=== PATIENT | female | born 1990 | race Caucasian/White ===

== ENCOUNTER 2020-01-01 04:27 | Emergency (ER) | payer SELFPAY ==
[~2020-01-01] VITALS: Ht 157.5 cm; Wt 72.4 kg
[2020-01-01] MEDS ORDERED: ONDANSETRON 2MG/ML, 2ML ONE (04:44)
[2020-01-01] MEDS ORDERED: FAMOTIDINE 20 MG/2 ML ONE (04:48)
[2020-01-01] MEDS ORDERED: ONDANSETRON 2MG/ML, 2ML IVPush ONE (05:00)
[2020-01-01] MEDS ORDERED: SODIUM CHLORIDE 0.9% 1,000ML IVBOLUS ONE ×2 (05:00→06:30)
[2020-01-01] MEDS ORDERED: FAMOTIDINE 20 MG/2 ML IVPush ONE (05:00)
[2020-01-01 05:03] LABS: BASOPHILS % (AUTO) 0 % (0-1); EOSINOPHILS # (AUTO) 0.04 x10^3/uL (0-0.4); EOSINOPHILS % (AUTO) 0 % (1-7); LYMPHOCYTES # (AUTO) 2.09 x10^3/uL (1-3.4); LYMPHOCYTES % (AUTO) 15 % (22-44); MD NO; MEAN CORPUSCULAR HGB CONC 33.5 g/dL (32.4-35.8); MEAN CORPUSCULAR VOLUME 92.4 fL (80-100); MEAN PLATELET VOLUME 8.3 fL (7.4-10.4); MONOCYTES # (AUTO) 0.33 x10^3/uL (0.2-0.8); MONOCYTES % (AUTO) 2 % (2-9); NEUTROPHILS # (AUTO) 11.72 x10^3/uL (1.8-6.8); NEUTROPHILS % (AUTO) 83 % (42-75); PLATELET COUNT 373 x10^3/uL (130-400); RED CELL DISTRIBUTION WIDTH 13.6 % (9.6-15.2)
[2020-01-01 05:13] LABS: ALANINE AMINOTRANSFERASE 36 U/L (12-78); ALBUMIN 3.9 g/dL (3.4-5.0); ANION GAP 11 mmol/L (5-15); CALCIUM 9.3 mg/dL (8.5-10.1); CHLORIDE 106 mmol/L (98-107); CREATININE 0.75 mg/dL (0.55-1.02)
[2020-01-01] MEDS ORDERED: PROMETHAZINE 25 MG/ML, 1ML ONE (05:27)
[2020-01-01 05:30] LABS: ALKALINE PHOSPHATASE 88 U/L (45-117); BILIRUBIN,TOTAL 0.7 mg/dL (0.2-1.0); TOTAL PROTEIN 8.7 g/dL (6.4-8.2)
[2020-01-01] MEDS ORDERED: PROMETHAZINE 25 MG/ML, 1ML IM ONE (05:30)
[2020-01-01 05:31] LABS: MICROSCOPIC INDICATED
[2020-01-01 06:25] VITALS: BP 110/63
[2020-01-01] MEDS ORDERED: METOCLOPRAMIDE 5 MG/ML, 2ML ONE (06:42)
--- NOTE | 2020-01-01 06:57 | NUR ---
report to NOMI Harp
[2020-01-01] MEDS ORDERED: METOCLOPRAMIDE 5 MG/ML, 2ML IVPush ONE (07:00)
--- NOTE | 2020-01-01 07:51 | NUR ---
DISCHARGE INSTRUCTIONS REVIEWED
== END 2020-01-01 08:15 | disposition home or self-care (01) ==
LOC: ED 05:27
DX: O23.41 Unspecified infection of urinary tract in pregnancy, first trimester (principal); O21.8 Other vomiting complicating pregnancy; O20.8 Other hemorrhage in early pregnancy; Z3A.01 Less than 8 weeks gestation of pregnancy
CPT/HCPCS: 36415; 76801; 80053; 81001; 84702; 85025; 87077; 87086; 96361; 96372; 96374; 96375; 99285; J2405; J2550; J2765; J3490; J7030; 87186; 99284

== ENCOUNTER 2020-01-02 07:33 | Inpatient (IN) | payer OTHER ==
[~2020-01-02] VITALS: Ht 157.5 cm; Wt 68.8 kg
--- NOTE | 2020-01-02 07:50 | NUR ---
first contact with pt. pt is 8 wks . pt c/o N/V, "THROWING UP BLOOD" LMP 11/03/19. a0. pt's aox4. resps even and unlabored. denies any other sx. bp/spo2 monitors in place. call light within reach. pa at bedside to evaluate at this time.
[2020-01-02] MEDS ORDERED: CEFTRIAXONE PMX 1GM/50ML 50 ML ONE (07:54)
[2020-01-02] MEDS ORDERED: MAALOX/HYOSCYAMINE/LIDOCAINE 45 ML BTL ONE (07:54)
[2020-01-02] MEDS ORDERED: FAMOTIDINE 20 MG/2 ML ONE (07:54)
[2020-01-02] MEDS ORDERED: METOCLOPRAMIDE 5 MG/ML, 2ML ONE (07:54)
[2020-01-02] MEDS ORDERED: CEFTRIAXONE PMX 1GM/50ML 50 ML IV ONE (08:00)
[2020-01-02] MEDS ORDERED: MAALOX/HYOSCYAMINE/LIDOCAINE 45 ML BTL PO ONE (08:00)
[2020-01-02] MEDS ORDERED: METOCLOPRAMIDE 5 MG/ML, 2ML IVPush ONE (08:00)
[2020-01-02] MEDS ORDERED: SODIUM CHLORIDE 0.9% 1,000ML IVBOLUS ONE (08:00)
[2020-01-02] MEDS ORDERED: FAMOTIDINE 20 MG/2 ML IV ONE (08:00)
--- NOTE | 2020-01-02 08:02 | NUR ---
ULTRASOUND DELAY-IV/MEDS/LABS
[2020-01-02 08:07] LABS: BASOPHILS % (AUTO) 0 % (0-1); EOSINOPHILS # (AUTO) 0.01 x10^3/uL (0-0.4); EOSINOPHILS % (AUTO) 0 % (1-7); LYMPHOCYTES % (AUTO) 12 % (22-44); MD NO; MEAN CORPUSCULAR HEMOGLOBIN 31.1 pg (27.0-34.8); MEAN CORPUSCULAR HGB CONC 33.8 g/dL (32.4-35.8); MEAN CORPUSCULAR VOLUME 92.1 fL (80-100); MEAN PLATELET VOLUME 7.8 fL (7.4-10.4); MONOCYTES # (AUTO) 0.26 x10^3/uL (0.2-0.8); MONOCYTES % (AUTO) 2 % (2-9); NEUTROPHILS # (AUTO) 10.38 x10^3/uL (1.8-6.8); NEUTROPHILS % (AUTO) 86 % (42-75); PLATELET COUNT 331 x10^3/uL (130-400); RED BLOOD COUNT 4.41 x10^6/uL (3.82-5.3); RED CELL DISTRIBUTION WIDTH 13.7 % (9.6-15.2)
--- NOTE | 2020-01-02 08:14 | NUR ---
piv est on r ac with no complications. pt medicated per emar. ns and abx infusing at this time. no bc needed per pa. pt tolerated well.
--- NOTE | 2020-01-02 08:14 | NUR ---
us at bedside at this time.
[2020-01-02 08:22] LABS: ALBUMIN 3.6 g/dL (3.4-5.0); ANION GAP 9 mmol/L (5-15); CALCIUM 8.5 mg/dL (8.5-10.1); CHLORIDE 108 mmol/L (98-107)
[2020-01-02] MEDS ORDERED: PROMETHAZINE 25 MG/ML, 1ML IM ONE (08:30)
[2020-01-02 08:42] LABS: ALANINE AMINOTRANSFERASE 31 U/L (12-78); ALKALINE PHOSPHATASE 79 U/L (45-117); BILIRUBIN,TOTAL 0.6 mg/dL (0.2-1.0); TOTAL PROTEIN 7.8 g/dL (6.4-8.2)
--- NOTE | 2020-01-02 09:02 | NUR ---
pt stated"i feel better. i don't need med now." pa notified.
[2020-01-02] MEDS ORDERED: PROMETHAZINE 25 MG/ML, 1ML ONE (09:13)
--- NOTE | 2020-01-02 09:18 | NUR ---
PT MEDICATED PER EMAR. PT TOLERATED WELL.
--- NOTE | 2020-01-02 09:37 | NUR ---
TASK RN NOTE: PT STILL DRY HEAVING. GIVEN ALCOHOL WIPE TO SMELL FOR NAUSEA RELIEF. HOB TO LEVEL OF COMFORT. PT SITTING UP, ABLE TO STOP HEAVING TO ANSWER QUESTIONS FOR REGISTRATION. SIDE RAILS UP, CALL LIGHT IN REACH.
[2020-01-02] MEDS ORDERED: DIPHENHYDRAMINE 50 MG/ML, 1ML ONE (09:43)
[2020-01-02] MEDS ORDERED: ONDANSETRON 2MG/ML, 2ML ONE (09:43)
--- NOTE | 2020-01-02 09:50 | NUR ---
PT MEDICATED PER EMAR. PT TOLERATED WELL. PT'S AOX4. RESPS EVEN AND UNLABORED.
[2020-01-02] MEDS ORDERED: ONDANSETRON 2MG/ML, 2ML IVPush ONE (10:00)
[2020-01-02] MEDS ORDERED: DIPHENHYDRAMINE 50 MG/ML, 1ML IVPush ONE (10:00)
--- NOTE | 2020-01-02 10:22 | NUR ---
REPORT GIVEN TO LIZBET MOSHER. ALL QUESTIONS ANSWERED.
[2020-01-02 10:46] VITALS: BP 113/78
[2020-01-02] MEDS ORDERED: hydrALAzine 20 MG/ML, 1ML IVPush PRN (12:00)
[2020-01-02] MEDS ORDERED: ONDANSETRON ODT 4 MG PO PRN (12:00)
[2020-01-02] MEDS ORDERED: POLYETHYLENE GLYCOL 17 GM PACKET PO PRN (12:00)
[2020-01-02] MEDS ORDERED: BISACODYL 10 MG SUPP PR PRN (12:00)
[2020-01-02] MEDS ORDERED: ONDANSETRON 2MG/ML, 2ML IVPush PRN (12:00)
[2020-01-02] MEDS: D5%-0.9% NACL+KCL 20MEQ 1,000 ML IV SCH ×2 (12:37→23:58)
[2020-01-02] MEDS: PROMETHAZINE 25 MG SUPP PR PRN ×2 (13:00→20:15)
[2020-01-02 14:10] VITALS: BP 109/73
[2020-01-02] MEDS: METOCLOPRAMIDE 5 MG/ML, 2ML IVPush PRN (16:15)
[2020-01-02] MEDS: PYRIDOXINE 25MG TABLET PO SCH (20:15)
[2020-01-02] MEDS: FAMOTIDINE 20 MG/2 ML IVPush SCH (20:15)
[2020-01-02 20:25] VITALS: BP 102/65
[2020-01-02] MEDS ORDERED: DOXYLAMINE 25MG TABLET PO SCH (21:00)
[2020-01-03 01:19] VITALS: BP 114/73
[2020-01-03] MEDS: PROMETHAZINE 25 MG SUPP PR PRN ×4 (02:41→23:12)
[2020-01-03] MEDS: METOCLOPRAMIDE 5 MG/ML, 2ML IVPush PRN ×2 (03:56→14:59)
[2020-01-03 05:48] LABS: BASOPHILS # (AUTO) 0.01 x10^3/uL (0-0.1); BASOPHILS % (AUTO) 0 % (0-1); EOSINOPHILS % (AUTO) 0 % (1-7); LYMPHOCYTES # (AUTO) 1.93 x10^3/uL (1-3.4); LYMPHOCYTES % (AUTO) 14 % (22-44); MD NO; MEAN CORPUSCULAR HEMOGLOBIN 31.3 pg (27.0-34.8); MEAN CORPUSCULAR HGB CONC 33.8 g/dL (32.4-35.8); MEAN CORPUSCULAR VOLUME 92.6 fL (80-100); MEAN PLATELET VOLUME 8.3 fL (7.4-10.4); MONOCYTES # (AUTO) 0.68 x10^3/uL (0.2-0.8); MONOCYTES % (AUTO) 5 % (2-9); NEUTROPHILS # (AUTO) 11.19 x10^3/uL (1.8-6.8); NEUTROPHILS % (AUTO) 81 % (42-75); PLATELET COUNT 270 x10^3/uL (130-400); RED BLOOD COUNT 3.78 x10^6/uL (3.82-5.3); RED CELL DISTRIBUTION WIDTH 13.6 % (9.6-15.2)
[2020-01-03 06:01] LABS: ALBUMIN 2.9 g/dL (3.4-5.0); ANION GAP 7 mmol/L (5-15); CALCIUM 7.6 mg/dL (8.5-10.1); CHLORIDE 112 mmol/L (98-107)
[2020-01-03 06:06] LABS: ALANINE AMINOTRANSFERASE 31 U/L (12-78); ALKALINE PHOSPHATASE 66 U/L (45-117); BILIRUBIN,TOTAL 0.3 mg/dL (0.2-1.0); CREATININE 0.47 mg/dL (0.55-1.02); TOTAL PROTEIN 6.5 g/dL (6.4-8.2)
[2020-01-03 06:24] VITALS: BP 125/83
[2020-01-03] MEDS ORDERED: CEFTRIAXONE PMX 1GM/50ML 50 ML IV SCH (08:00)
[2020-01-03] MEDS: DOXYLAMINE 25MG TABLET PO SCH ×3 (08:24→20:24)
[2020-01-03] MEDS: FAMOTIDINE 20 MG/2 ML IVPush SCH (08:24)
[2020-01-03] MEDS ORDERED: SENNA/DOCUSATE TABLET PO SCH (09:00)
[2020-01-03] MEDS: D5%-0.9% NACL+KCL 20MEQ 1,000 ML IV SCH ×2 (10:00→16:42)
[2020-01-03] MEDS ORDERED: ACETAMINOPHEN 325 MG TABLET PO PRN (10:30)
[2020-01-03 12:18] VITALS: BP 113/76
[2020-01-03 19:41] VITALS: BP 127/84
[2020-01-03] MEDS: CALCIUM CARBONATE 500 MG TAB.CHEW PO PRN ×2 (20:24→23:12)
[2020-01-03] MEDS: PYRIDOXINE 25MG TABLET PO SCH (20:24)
[2020-01-03] MEDS ORDERED: FAMOTIDINE 20 MG/2 ML IV SCH (21:00)
[2020-01-04 00:08] VITALS: BP 93/54
[2020-01-04] MEDS: CALCIUM CARBONATE 500 MG TAB.CHEW PO PRN ×2 (01:58→08:15)
[2020-01-04] MEDS: D5%-0.9% NACL+KCL 20MEQ 1,000 ML IV SCH (04:25)
[2020-01-04 05:44] LABS: ALANINE AMINOTRANSFERASE 65 U/L (12-78); ALBUMIN 2.9 g/dL (3.4-5.0); ANION GAP 9 mmol/L (5-15); CALCIUM 7.8 mg/dL (8.5-10.1); CHLORIDE 111 mmol/L (98-107); CREATININE 0.45 mg/dL (0.55-1.02)
[2020-01-04 05:47] LABS: ALKALINE PHOSPHATASE 75 U/L (45-117); TOTAL PROTEIN 6.7 g/dL (6.4-8.2)
[2020-01-04 06:01] LABS: BASOPHILS # (AUTO) 0.04 x10^3/uL (0-0.1); BASOPHILS % (AUTO) 0 % (0-1); EOSINOPHILS % (AUTO) 0 % (1-7); LYMPHOCYTES # (AUTO) 2.04 x10^3/uL (1-3.4); LYMPHOCYTES % (AUTO) 16 % (22-44); MD NO; MEAN CORPUSCULAR HEMOGLOBIN 30.9 pg (27.0-34.8); MEAN CORPUSCULAR HGB CONC 33.4 g/dL (32.4-35.8); MEAN CORPUSCULAR VOLUME 92.6 fL (80-100); MEAN PLATELET VOLUME 8.4 fL (7.4-10.4); MONOCYTES # (AUTO) 0.59 x10^3/uL (0.2-0.8); MONOCYTES % (AUTO) 5 % (2-9); NEUTROPHILS # (AUTO) 9.99 x10^3/uL (1.8-6.8); NEUTROPHILS % (AUTO) 79 % (42-75); PLATELET COUNT 292 x10^3/uL (130-400); RED BLOOD COUNT 3.85 x10^6/uL (3.82-5.3); RED CELL DISTRIBUTION WIDTH 13.8 % (9.6-15.2)
[2020-01-04 06:32] VITALS: BP 2/67
[2020-01-04] MEDS ORDERED: CEPH-368 PO (07:57)
[2020-01-04] MEDS: DOXYLAMINE 25MG TABLET PO SCH (08:11)
== END 2020-01-04 10:00 | disposition home or self-care (01) | DRG 832 ==
LOC: ED 07:51 → EDIP 09:52 → 3N 10:27 → DCLOUNGE 01-04 09:55
PROVIDERS: ADMIT Internal Medicine; ATTEND Hospitalist
DX: O21.1 Hyperemesis gravidarum with metabolic disturbance (principal); O23.41 Unspecified infection of urinary tract in pregnancy, first trimester; O99.321 Drug use complicating pregnancy, first trimester; F12.90 Cannabis use, unspecified, uncomplicated; B96.20 Unspecified Escherichia coli [E. coli] as the cause of diseases classified elsewhere; O99.611 Diseases of the digestive system complicating pregnancy, first trimester; K59.00 Constipation, unspecified; O46.8X1 Other antepartum hemorrhage, first trimester; Z3A.08 8 weeks gestation of pregnancy
CPT/HCPCS: 36415; 96365; 96366; 96372; 96375; 99285; J3490; 76700; 80053; 83690; 83735; 84100; 84702; 85025; G0378; J0696; J2405; J2550; J1200; J2765; J3480; J7030

== ENCOUNTER 2020-01-07 08:23 | Inpatient (IN) | payer MEDICAID, OTHER ==
[~2020-01-07] VITALS: Ht 154.9 cm; Wt 73.9 kg
[~2020-01-07 08:23] MED LIST: CEPH-368 PO
--- NOTE | 2020-01-07 09:12 | NUR ---
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 LILIAN
[2020-01-07] MEDS ORDERED: ONDANSETRON 2MG/ML, 2ML ONE (09:30)
[2020-01-07] MEDS ORDERED: SODIUM CHLORIDE FLUSH 10ML SYR IVF ONE (09:30)
[2020-01-07] MEDS ORDERED: ONDANSETRON 2MG/ML, 2ML IVPush ONE (09:30)
[2020-01-07] MEDS ORDERED: MORPHINE SULFATE 4 MG/ML, 1ML ONE (09:30)
--- NOTE | 2020-01-07 09:34 | NUR ---
Pt transported on gurney to imaging at this time and is away from ED room at this time.
[2020-01-07 09:35] LABS: MICROSCOPIC INDICATED
--- NOTE | 2020-01-07 10:13 | NUR ---
Pt back to room from US.
[2020-01-07] MEDS: MORPHINE SULFATE 4 MG/ML, 1ML IVPush PRN ×2 (10:29→18:44)
[2020-01-07] MEDS ORDERED: zofran (10:35)
[2020-01-07 10:50] LABS: BASOPHILS # (AUTO) 0.01 x10^3/uL (0-0.1); BASOPHILS % (AUTO) 0 % (0-1); EOSINOPHILS # (AUTO) 0.07 x10^3/uL (0-0.4); EOSINOPHILS % (AUTO) 1 % (1-7); LYMPHOCYTES # (AUTO) 1.67 x10^3/uL (1-3.4); LYMPHOCYTES % (AUTO) 13 % (22-44); MD NO; MEAN CORPUSCULAR HGB CONC 33.6 g/dL (32.4-35.8); MEAN CORPUSCULAR VOLUME 92.3 fL (80-100); MEAN PLATELET VOLUME 8.4 fL (7.4-10.4); MONOCYTES # (AUTO) 0.23 x10^3/uL (0.2-0.8); MONOCYTES % (AUTO) 2 % (2-9); NEUTROPHILS # (AUTO) 10.51 x10^3/uL (1.8-6.8); NEUTROPHILS % (AUTO) 84 % (42-75); PLATELET COUNT 339 x10^3/uL (130-400); RED BLOOD COUNT 4.34 x10^6/uL (3.82-5.3); RED CELL DISTRIBUTION WIDTH 13.6 % (9.6-15.2)
[2020-01-07 11:02] LABS: ALANINE AMINOTRANSFERASE 110 U/L (12-78); ALBUMIN 3.1 g/dL (3.4-5.0); ANION GAP 11 mmol/L (5-15); CALCIUM 7.8 mg/dL (8.5-10.1); CHLORIDE 106 mmol/L (98-107); CREATININE 0.42 mg/dL (0.55-1.02)
[2020-01-07 11:19] LABS: ALKALINE PHOSPHATASE 124 U/L (45-117); BILIRUBIN,TOTAL 0.7 mg/dL (0.2-1.0); TOTAL PROTEIN 7.2 g/dL (6.4-8.2)
--- NOTE | 2020-01-07 11:29 | NUR ---
WICHO PA IN FOR RECHECK.
[2020-01-07] MEDS ORDERED: SODIUM CHLORIDE 0.9% 1,000ML IVBOLUS ONE (11:30)
[2020-01-07] MEDS ORDERED: CEFOTETAN PMX 1GM/50ML 50 ML ONE (11:42)
--- NOTE | 2020-01-07 11:52 | NUR ---
FLUID BOLUS AND ABX INFUSING. PT UNDERSTANDS PLAN FOR ADMISSION.
[2020-01-07] MEDS ORDERED: CEFOTETAN PMX 1GM/50ML 50 ML IV ONE (12:00)
[2020-01-07] MEDS ORDERED: morphine SULFATE 10 MG/ML, 1ML IVPush PRN (14:30)
[2020-01-07] MEDS ORDERED: hydrALAzine 20 MG/ML, 1ML IVPush PRN (14:30)
[2020-01-07] MEDS ORDERED: ACETAMINOPHEN 325 MG TABLET PO PRN (14:30)
[2020-01-07] MEDS: D5%-0.45NACL+KCL 20MEQ 1,000 ML IV SCH (15:44)
[2020-01-07] MEDS: AMPICILLIN/SULBACTAM 3 GM in SODIUM CHLORIDE 0.9% 100 ML IV SCH ×2 (17:00→23:01)
[2020-01-07 19:05] VITALS: BP 117/76
[2020-01-07] MEDS: OXYcodone IR 5MG TABLET PO PRN (19:49)
[2020-01-08] MEDS ORDERED: Pepcid (00:16)
[2020-01-08 00:32] VITALS: BP 105/67
[2020-01-08] MEDS: ONDANSETRON 2MG/ML, 2ML IVPush PRN ×2 (01:27→09:11)
[2020-01-08] MEDS: OXYcodone IR 5MG TABLET PO PRN ×5 (01:54→23:12)
[2020-01-08] MEDS: D5%-0.45NACL+KCL 20MEQ 1,000 ML IV SCH ×2 (03:15→14:13)
[2020-01-08] MEDS: AMPICILLIN/SULBACTAM 3 GM in SODIUM CHLORIDE 0.9% 100 ML IV SCH ×4 (05:16→23:08)
[2020-01-08 05:53] LABS: BASOPHILS # (AUTO) 0.07 x10^3/uL (0-0.1); BASOPHILS % (AUTO) 1 % (0-1); EOSINOPHILS # (AUTO) 0.07 x10^3/uL (0-0.4); EOSINOPHILS % (AUTO) 1 % (1-7); LYMPHOCYTES # (AUTO) 2.06 x10^3/uL (1-3.4); LYMPHOCYTES % (AUTO) 24 % (22-44); MD NO; MEAN CORPUSCULAR HEMOGLOBIN 30.9 pg (27.0-34.8); MEAN CORPUSCULAR HGB CONC 33.6 g/dL (32.4-35.8); MEAN CORPUSCULAR VOLUME 92.1 fL (80-100); MEAN PLATELET VOLUME 8.1 fL (7.4-10.4); MONOCYTES # (AUTO) 0.28 x10^3/uL (0.2-0.8); MONOCYTES % (AUTO) 3 % (2-9); NEUTROPHILS # (AUTO) 6.12 x10^3/uL (1.8-6.8); NEUTROPHILS % (AUTO) 71 % (42-75); PLATELET COUNT 284 x10^3/uL (130-400); RED CELL DISTRIBUTION WIDTH 13.7 % (9.6-15.2)
[2020-01-08 05:59] LABS: CALCIUM 7.7 mg/dL (8.5-10.1); CHLORIDE 107 mmol/L (98-107)
[2020-01-08 06:02] LABS: ANION GAP 6 mmol/L (5-15); CREATININE 0.49 mg/dL (0.55-1.02)
[2020-01-08 08:00] VITALS: BP 117/75
[2020-01-08 08:23] LABS: ALBUMIN 2.6 g/dL (3.4-5.0); BILIRUBIN, DIRECT 0.2 mg/dL (0.1-0.2)
[2020-01-08 08:27] LABS: BILIRUBIN,INDIRECT 0.2 mg/dL (0.0-2.0); BILIRUBIN,TOTAL 0.4 mg/dL (0.2-1.0); TOTAL PROTEIN 6.3 g/dL (6.4-8.2)
[2020-01-08] MEDS ORDERED: POTASSIUM CHLORIDE 20 MEQ TAB.ER.PRT PO ONE (12:30)
[2020-01-08 14:42] VITALS: BP 117/79
[2020-01-08] MEDS: PANTOPRAZOLE 40 MG IV IVPush SCH (17:01)
[2020-01-08] MEDS: ALUMINUM/MAG/SIMETHICONE 30 ML UDC PO SCH ×2 (17:01→20:54)
[2020-01-08] MEDS: SUCRALFATE 1 GM/10 ML UDC PO SCH ×2 (17:01→20:54)
[2020-01-08 19:36] VITALS: BP 104/63
[2020-01-09 00:25] VITALS: BP 103/63
[2020-01-09] MEDS: D5%-0.45NACL+KCL 20MEQ 1,000 ML IV SCH (01:32)
[2020-01-09] MEDS: ONDANSETRON 2MG/ML, 2ML IVPush PRN ×3 (04:09→20:26)
[2020-01-09] MEDS: OXYcodone IR 5MG TABLET PO PRN ×2 (05:14→20:26)
[2020-01-09] MEDS: PANTOPRAZOLE 40 MG IV IVPush SCH ×2 (05:14→17:00)
[2020-01-09] MEDS: AMPICILLIN/SULBACTAM 3 GM in SODIUM CHLORIDE 0.9% 100 ML IV SCH ×4 (05:14→23:04)
[2020-01-09] MEDS: ALUMINUM/MAG/SIMETHICONE 30 ML UDC PO SCH ×3 (07:31→20:26)
[2020-01-09] MEDS: SUCRALFATE 1 GM/10 ML UDC PO SCH ×4 (07:31→20:26)
[2020-01-09 08:19] VITALS: BP 110/74
[2020-01-09 09:01] LABS: CALCIUM 7.9 mg/dL (8.5-10.1); CHLORIDE 108 mmol/L (98-107)
[2020-01-09 09:05] LABS: ALANINE AMINOTRANSFERASE 76 U/L (12-78); ALBUMIN 2.8 g/dL (3.4-5.0); ALKALINE PHOSPHATASE 121 U/L (45-117); ANION GAP 6 mmol/L (5-15); BILIRUBIN,TOTAL 0.5 mg/dL (0.2-1.0); CREATININE 0.49 mg/dL (0.55-1.02); TOTAL PROTEIN 6.5 g/dL (6.4-8.2)
[2020-01-09] MEDS: FOLIC ACID 1 MG TABLET PO SCH (09:52)
[2020-01-09 13:10] VITALS: BP 90/54
[2020-01-09] MEDS: ACETAMINOPHEN 325 MG TABLET PO PRN (13:42)
[2020-01-09 20:00] VITALS: BP 105/66
[2020-01-10 00:11] VITALS: BP 96/65
[2020-01-10 05:31] LABS: ALBUMIN 2.8 g/dL (3.4-5.0); ANION GAP 6 mmol/L (5-15); CALCIUM 7.8 mg/dL (8.5-10.1); CHLORIDE 108 mmol/L (98-107)
[2020-01-10 05:35] LABS: ALANINE AMINOTRANSFERASE 64 U/L (12-78); ALKALINE PHOSPHATASE 103 U/L (45-117); BILIRUBIN,TOTAL 0.5 mg/dL (0.2-1.0); CREATININE 0.52 mg/dL (0.55-1.02); TOTAL PROTEIN 6.4 g/dL (6.4-8.2)
[2020-01-10] MEDS: PANTOPRAZOLE 40 MG IV IVPush SCH ×2 (05:35→17:34)
[2020-01-10] MEDS: AMPICILLIN/SULBACTAM 3 GM in SODIUM CHLORIDE 0.9% 100 ML IV SCH ×4 (05:35→23:09)
[2020-01-10] MEDS: ONDANSETRON 2MG/ML, 2ML IVPush PRN ×2 (05:42→11:32)
[2020-01-10] MEDS: SUCRALFATE 1 GM/10 ML UDC PO SCH ×4 (07:38→21:58)
[2020-01-10] MEDS: ALUMINUM/MAG/SIMETHICONE 30 ML UDC PO SCH ×3 (07:38→21:58)
[2020-01-10] MEDS: FOLIC ACID 1 MG TABLET PO SCH (07:38)
[2020-01-10 08:07] VITALS: BP 101/67
[2020-01-10] MEDS: ACETAMINOPHEN 325 MG TABLET PO PRN (11:33)
[2020-01-10 13:53] LABS: CLOSTRIDIUM DIFFICILE ANTIGEN POSITIVE; CLOSTRIDIUM DIFFICILE TOXIN NEGATIVE (Negative)
[2020-01-10 14:00] VITALS: BP 110/73
[2020-01-10] MEDS: DIPHENHYDRAMINE 50 MG/ML, 1ML IVPush PRN ×2 (14:22→21:54)
[2020-01-10] MEDS: VANCOMYCIN 50 MG/ML ORAL SUSP PO SCH ×2 (18:17→23:21)
[2020-01-10] MEDS: PYRIDOXINE 25MG TABLET PO SCH (21:59)
[2020-01-10] MEDS: DOXYLAMINE 25MG TABLET PO SCH (21:59)
[2020-01-10 22:00] VITALS: BP 98/65
[2020-01-10] MEDS: OXYcodone IR 5MG TABLET PO PRN (22:15)
[2020-01-11] MEDS: ONDANSETRON 2MG/ML, 2ML IVPush PRN (02:09)
[2020-01-11 02:12] VITALS: BP 111/72
[2020-01-11] MEDS: PANTOPRAZOLE 40 MG IV IVPush SCH ×2 (05:18→16:41)
[2020-01-11] MEDS: DIPHENHYDRAMINE 50 MG/ML, 1ML IVPush PRN ×2 (05:23→23:37)
[2020-01-11] MEDS: AMPICILLIN/SULBACTAM 3 GM in SODIUM CHLORIDE 0.9% 100 ML IV SCH ×3 (05:24→17:49)
[2020-01-11] MEDS: VANCOMYCIN 50 MG/ML ORAL SUSP PO SCH ×4 (05:29→23:37)
[2020-01-11] MEDS: OXYcodone IR 5MG TABLET PO PRN ×3 (05:32→20:30)
[2020-01-11 06:36] LABS: BASOPHILS # (AUTO) 0.03 x10^3/uL (0-0.1); BASOPHILS % (AUTO) 0 % (0-1); EOSINOPHILS # (AUTO) 0.12 x10^3/uL (0-0.4); EOSINOPHILS % (AUTO) 1 % (1-7); LYMPHOCYTES # (AUTO) 2.33 x10^3/uL (1-3.4); LYMPHOCYTES % (AUTO) 23 % (22-44); MD NO; MEAN CORPUSCULAR HEMOGLOBIN 30.9 pg (27.0-34.8); MEAN CORPUSCULAR HGB CONC 33.1 g/dL (32.4-35.8); MEAN CORPUSCULAR VOLUME 93.5 fL (80-100); MEAN PLATELET VOLUME 8.4 fL (7.4-10.4); MONOCYTES # (AUTO) 0.34 x10^3/uL (0.2-0.8); MONOCYTES % (AUTO) 3 % (2-9); NEUTROPHILS # (AUTO) 7.31 x10^3/uL (1.8-6.8); NEUTROPHILS % (AUTO) 72 % (42-75); PLATELET COUNT 328 x10^3/uL (130-400); RED BLOOD COUNT 4.27 x10^6/uL (3.82-5.3); RED CELL DISTRIBUTION WIDTH 13.6 % (9.6-15.2)
[2020-01-11 06:52] LABS: ANION GAP 6 mmol/L (5-15); CALCIUM 8.5 mg/dL (8.5-10.1); CHLORIDE 106 mmol/L (98-107)
[2020-01-11 06:53] LABS: CREATININE 0.52 mg/dL (0.55-1.02)
[2020-01-11 07:47] VITALS: BP 107/68
[2020-01-11] MEDS: SUCRALFATE 1 GM/10 ML UDC PO SCH ×4 (08:27→20:28)
[2020-01-11] MEDS: FOLIC ACID 1 MG TABLET PO SCH (08:27)
[2020-01-11] MEDS: ALUMINUM/MAG/SIMETHICONE 30 ML UDC PO SCH ×3 (08:27→20:29)
[2020-01-11 13:48] VITALS: BP 109/72
[2020-01-11 20:26] VITALS: BP 116/64
[2020-01-11] MEDS: PYRIDOXINE 25MG TABLET PO SCH (20:29)
[2020-01-11] MEDS: LACTOBACILLUS CHEW TABLET PO SCH (20:29)
[2020-01-11] MEDS: DOXYLAMINE 25MG TABLET PO SCH (20:30)
[2020-01-12 01:37] VITALS: BP 100/65
[2020-01-12] MEDS: PANTOPRAZOLE 40 MG IV IVPush SCH ×2 (05:38→16:35)
[2020-01-12] MEDS: VANCOMYCIN 50 MG/ML ORAL SUSP PO SCH ×4 (05:38→23:47)
[2020-01-12] MEDS: DIPHENHYDRAMINE 50 MG/ML, 1ML IVPush PRN ×2 (05:47→23:49)
[2020-01-12 05:52] LABS: BASOPHILS # (AUTO) 0.08 x10^3/uL (0-0.1); BASOPHILS % (AUTO) 1 % (0-1); EOSINOPHILS # (AUTO) 0.08 x10^3/uL (0-0.4); EOSINOPHILS % (AUTO) 1 % (1-7); LYMPHOCYTES # (AUTO) 2.11 x10^3/uL (1-3.4); LYMPHOCYTES % (AUTO) 21 % (22-44); MD NO; MEAN CORPUSCULAR HEMOGLOBIN 30.8 pg (27.0-34.8); MEAN CORPUSCULAR VOLUME 93.4 fL (80-100); MEAN PLATELET VOLUME 8.1 fL (7.4-10.4); MONOCYTES # (AUTO) 0.34 x10^3/uL (0.2-0.8); MONOCYTES % (AUTO) 3 % (2-9); NEUTROPHILS # (AUTO) 7.48 x10^3/uL (1.8-6.8); NEUTROPHILS % (AUTO) 74 % (42-75); PLATELET COUNT 319 x10^3/uL (130-400); RED BLOOD COUNT 4.47 x10^6/uL (3.82-5.3)
[2020-01-12] MEDS: SUCRALFATE 1 GM/10 ML UDC PO SCH ×4 (06:06→20:02)
[2020-01-12 06:08] LABS: CHLORIDE 103 mmol/L (98-107)
[2020-01-12 06:13] LABS: ALANINE AMINOTRANSFERASE 57 U/L (12-78); ALBUMIN 3.1 g/dL (3.4-5.0); ALKALINE PHOSPHATASE 102 U/L (45-117); ANION GAP 4 mmol/L (5-15); BILIRUBIN,TOTAL 0.4 mg/dL (0.2-1.0); CALCIUM 8.8 mg/dL (8.5-10.1); TOTAL PROTEIN 7.2 g/dL (6.4-8.2)
[2020-01-12] MEDS: OXYcodone IR 5MG TABLET PO PRN ×3 (08:05→23:48)
[2020-01-12] MEDS: LACTOBACILLUS CHEW TABLET PO SCH ×3 (08:06→20:02)
[2020-01-12] MEDS: ALUMINUM/MAG/SIMETHICONE 30 ML UDC PO SCH ×3 (08:06→20:02)
[2020-01-12] MEDS: FOLIC ACID 1 MG TABLET PO SCH (08:06)
[2020-01-12 08:15] VITALS: BP 101/69
[2020-01-12 12:59] VITALS: BP 111/76
[2020-01-12] MEDS: ONDANSETRON 2MG/ML, 2ML IVPush PRN (16:35)
[2020-01-12 19:13] VITALS: BP 117/76
[2020-01-12] MEDS: PYRIDOXINE 25MG TABLET PO SCH (20:02)
[2020-01-12] MEDS: DOXYLAMINE 25MG TABLET PO SCH (20:02)
[2020-01-13 00:09] VITALS: BP 103/70
[2020-01-13] MEDS: PANTOPRAZOLE 40 MG IV IVPush SCH ×2 (05:52→16:32)
[2020-01-13] MEDS: VANCOMYCIN 50 MG/ML ORAL SUSP PO SCH ×4 (05:52→23:18)
[2020-01-13 05:59] LABS: BASOPHILS # (AUTO) 0.02 x10^3/uL (0-0.1); BASOPHILS % (AUTO) 0 % (0-1); EOSINOPHILS # (AUTO) 0.12 x10^3/uL (0-0.4); EOSINOPHILS % (AUTO) 1 % (1-7); LYMPHOCYTES # (AUTO) 2.17 x10^3/uL (1-3.4); LYMPHOCYTES % (AUTO) 23 % (22-44); MD NO; MEAN CORPUSCULAR HGB CONC 33.6 g/dL (32.4-35.8); MEAN CORPUSCULAR VOLUME 92.3 fL (80-100); MEAN PLATELET VOLUME 8.2 fL (7.4-10.4); MONOCYTES # (AUTO) 0.36 x10^3/uL (0.2-0.8); MONOCYTES % (AUTO) 4 % (2-9); NEUTROPHILS # (AUTO) 6.64 x10^3/uL (1.8-6.8); NEUTROPHILS % (AUTO) 71 % (42-75); PLATELET COUNT 291 x10^3/uL (130-400); RED BLOOD COUNT 4.21 x10^6/uL (3.82-5.3); RED CELL DISTRIBUTION WIDTH 13.7 % (9.6-15.2)
[2020-01-13] MEDS: DIPHENHYDRAMINE 50 MG/ML, 1ML IVPush PRN ×3 (06:02→20:41)
[2020-01-13] MEDS: OXYcodone IR 5MG TABLET PO PRN ×3 (06:02→20:40)
[2020-01-13 06:06] LABS: ANION GAP 7 mmol/L (5-15); CALCIUM 8.4 mg/dL (8.5-10.1); CHLORIDE 104 mmol/L (98-107); CREATININE 0.54 mg/dL (0.55-1.02)
[2020-01-13 07:40] VITALS: BP 94/60
[2020-01-13] MEDS: ALUMINUM/MAG/SIMETHICONE 30 ML UDC PO SCH ×3 (09:35→20:41)
[2020-01-13] MEDS: LACTOBACILLUS CHEW TABLET PO SCH ×3 (09:35→20:41)
[2020-01-13] MEDS: FOLIC ACID 1 MG TABLET PO SCH (09:35)
[2020-01-13] MEDS: SUCRALFATE 1 GM/10 ML UDC PO SCH ×4 (09:35→20:41)
[2020-01-13 13:28] VITALS: BP 111/73
[2020-01-13] MEDS: CALCIUM CARBONATE 500 MG TAB.CHEW PO PRN (17:28)
[2020-01-13 20:06] VITALS: BP 107/71
[2020-01-13] MEDS: PYRIDOXINE 25MG TABLET PO SCH (20:41)
[2020-01-13] MEDS: PANTOPRAZOLE 40MG TABLET PO SCH (20:41)
[2020-01-13] MEDS: DOXYLAMINE 25MG TABLET PO SCH (23:18)
[2020-01-14 00:57] VITALS: BP 101/68
[2020-01-14] MEDS: OXYcodone IR 5MG TABLET PO PRN ×3 (02:46→19:18)
[2020-01-14] MEDS: DIPHENHYDRAMINE 50 MG/ML, 1ML IVPush PRN ×3 (02:48→19:19)
[2020-01-14] MEDS: VANCOMYCIN 50 MG/ML ORAL SUSP PO SCH ×4 (05:36→23:35)
[2020-01-14] MEDS: ONDANSETRON 2MG/ML, 2ML IVPush PRN ×2 (05:54→22:04)
[2020-01-14 08:03] VITALS: BP 101/63
[2020-01-14] MEDS: ALUMINUM/MAG/SIMETHICONE 30 ML UDC PO SCH ×3 (09:15→22:00)
[2020-01-14] MEDS: PANTOPRAZOLE 40MG TABLET PO SCH ×2 (09:16→22:00)
[2020-01-14] MEDS: SUCRALFATE 1 GM/10 ML UDC PO SCH ×4 (09:16→22:00)
[2020-01-14] MEDS: LACTOBACILLUS CHEW TABLET PO SCH ×3 (09:16→22:00)
[2020-01-14] MEDS: FOLIC ACID 1 MG TABLET PO SCH (09:16)
[2020-01-14 14:00] VITALS: BP 100/57
[2020-01-14 19:34] VITALS: BP 109/72
[2020-01-14] MEDS: DOXYLAMINE 25MG TABLET PO SCH (22:00)
[2020-01-14] MEDS: PYRIDOXINE 25MG TABLET PO SCH (22:00)
[2020-01-14] MEDS: CALCIUM CARBONATE 500 MG TAB.CHEW PO PRN (22:11)
[2020-01-15 01:22] VITALS: BP 107/68
[2020-01-15] MEDS: OXYcodone IR 5MG TABLET PO PRN (01:30)
[2020-01-15] MEDS: DIPHENHYDRAMINE 50 MG/ML, 1ML IVPush PRN ×2 (01:30→07:50)
[2020-01-15 05:29] LABS: BASOPHILS # (AUTO) 0.03 x10^3/uL (0-0.1); BASOPHILS % (AUTO) 0 % (0-1); EOSINOPHILS # (AUTO) 0.12 x10^3/uL (0-0.4); EOSINOPHILS % (AUTO) 1 % (1-7); LYMPHOCYTES # (AUTO) 2.15 x10^3/uL (1-3.4); LYMPHOCYTES % (AUTO) 24 % (22-44); MD NO; MEAN CORPUSCULAR HEMOGLOBIN 31.1 pg (27.0-34.8); MEAN CORPUSCULAR HGB CONC 33.6 g/dL (32.4-35.8); MEAN CORPUSCULAR VOLUME 92.5 fL (80-100); MEAN PLATELET VOLUME 8.4 fL (7.4-10.4); MONOCYTES # (AUTO) 0.49 x10^3/uL (0.2-0.8); MONOCYTES % (AUTO) 5 % (2-9); NEUTROPHILS # (AUTO) 6.32 x10^3/uL (1.8-6.8); NEUTROPHILS % (AUTO) 69 % (42-75); PLATELET COUNT 287 x10^3/uL (130-400); RED BLOOD COUNT 4.17 x10^6/uL (3.82-5.3); RED CELL DISTRIBUTION WIDTH 13.7 % (9.6-15.2)
[2020-01-15 05:37] LABS: ANION GAP 6 mmol/L (5-15); CALCIUM 8.6 mg/dL (8.5-10.1); CHLORIDE 107 mmol/L (98-107); CREATININE 0.54 mg/dL (0.55-1.02)
[2020-01-15] MEDS: VANCOMYCIN 50 MG/ML ORAL SUSP PO SCH ×3 (05:55→16:22)
[2020-01-15] MEDS: ALUMINUM/MAG/SIMETHICONE 30 ML UDC PO SCH (08:25)
[2020-01-15] MEDS: FOLIC ACID 1 MG TABLET PO SCH (08:25)
[2020-01-15] MEDS: LACTOBACILLUS CHEW TABLET PO SCH ×2 (08:25→16:21)
[2020-01-15] MEDS: PANTOPRAZOLE 40MG TABLET PO SCH (08:25)
[2020-01-15] MEDS: SUCRALFATE 1 GM/10 ML UDC PO SCH (08:25)
[2020-01-15] MEDS ORDERED: ALUMINUM/MAG/SIMETHICONE 30 ML UDC PO PRN (09:00)
[2020-01-15 10:30] VITALS: BP 102/70
[2020-01-15] MEDS ORDERED: OXYcodone IR 5MG TABLET PO PRN (11:00)
[2020-01-15] MEDS ORDERED: ACETAMINOPHEN 325 MG TABLET PO PRN (12:30)
[2020-01-15 12:49] VITALS: BP 121/82
[2020-01-15] MEDS ORDERED: ACID1TAB7 PO (12:51)
[2020-01-15] MEDS ORDERED: VANC1VIA3 PO (12:51)
[2020-01-15] MEDS ORDERED: PYRI25TA2 PO (12:51)
[2020-01-15] MEDS ORDERED: FOLI-17 PO (12:51)
[2020-01-15] MEDS ORDERED: ACET325C6 PO (15:32)
[2020-01-15] MEDS ORDERED: OXYC5TAB3 PO (15:32)
== END 2020-01-15 17:06 | disposition home or self-care (01) | DRG 832 ==
LOC: ED 11:19 → EDIP 11:30 → 3N 12:05
PROVIDERS: ADMIT Internal Medicine; ATTEND Internal Medicine
DX: O26.613 Liver and biliary tract disorders in pregnancy, third trimester (principal); K81.0 Acute cholecystitis; A04.72 Enterocolitis due to Clostridium difficile, not specified as recurrent; E87.2 Acidosis; F19.20 Other psychoactive substance dependence, uncomplicated; O99.323 Drug use complicating pregnancy, third trimester; O21.1 Hyperemesis gravidarum with metabolic disturbance; O26.893 Other specified pregnancy related conditions, third trimester; O99.283 Endocrine, nutritional and metabolic diseases complicating pregnancy, third trimester; E86.0 Dehydration; E87.6 Hypokalemia; E88.09 Other disorders of plasma-protein metabolism, not elsewhere classified; F12.10 Cannabis abuse, uncomplicated; Z3A.28 28 weeks gestation of pregnancy; Z87.891 Personal history of nicotine dependence
CPT/HCPCS: 36415; 87338; 96365; 96375; 99285; J3370; 74181; 76700; 76705; 76801; 78227; 80048; 80053; 80076; 81001; 83690; 84703; 85025; 87324; G0378; J0295; J2405; A9510; C9113; J1200; J2270; J3480; J3490; J7030